=== PATIENT | male | born 1995 | race African-American/Black ===

== ENCOUNTER 2019-01-24 20:50 | Emergency (ER) | payer OTHER ==
[~2019-01-24] VITALS: Ht 185.4 cm; Wt 81.0 kg
[2019-01-24 21:54] LABS: HEMATOCRIT 43.7 % (39.0-50.0); HEMOGLOBIN 14.8 g/dl (14.0-18.0); IMMATURE GRANULOCYTES 0.4 % (0.0-5.0); MEAN CELL VOLUME 84.5 fL CALC (80.0-100.0); MEAN CORPUSCULAR HGB 28.6 pG CALC (26.0-32.0); MEAN CORPUSCULAR HGB CONC 33.9 g/L CALC (32.0-36.0); NEUT# 2.57 thou/uL (1.82-7.42); RED BLOOD COUNT 5.17 mill/uL (4.70-6.10); RED CELL DISTRI WIDTH 11.8 % (11.5-15.5)
[2019-01-24 22:17] LABS: ALBUMIN 4.2 g/dL (3.2-5.0); ALKALINE PHOSPHATASE 74 u/l (38-126); ANION GAP 12 (6-22 (CALC)); BILIRUBIN, TOTAL 1.1 mg/dL (0.0-1.4); BUN 18 mg/dL (9-20); BUN/CREATININE RATIO 19 (12-20 (CALC)); CARBON DIOXIDE 26 mmol/l (22-30); CHLORIDE 102 mmol/l (95-108); GFR > 60 ML/MIN (>=60 (CALC)); GFR FOR AFR.AMER. > 60 ML/MIN (>=60 (CALC)); POTASSIUM 4.2 mmol/l (3.5-5.1); SGOT/AST 38 u/l (17-59); SODIUM 136 mmol/l (137-146); TOTAL PROTEIN 7.2 g/dL (6.3-8.2)
[2019-01-24 22:28] LABS: MYOGLOBIN 41 ng/mL (0 - 121)
[2019-01-24 23:15] VITALS: BP 148/68
== END 2019-01-24 23:15 | disposition home or self-care (01) | DRG 313 ==
LOC: ED 20:50
PROVIDERS: Emergency Medicine
DX: R07.89 Other chest pain (principal)